=== PATIENT | female | born 1945 | race Caucasian/White ===

== ENCOUNTER 2019-12-29 05:20 | Outpatient (CLI) | payer MEDICARE, OTHER ==
[2019-12-29 13:53] LABS: #Eosinphils 0.2 thou/uL (0.0-0.7); #Lymphocytes 2.6 thou/uL (1.20-3.40); %Basophils 0.4 % (0.0-1.0); %Lymphocytes 29.2 % (21.0-51.0); %Monocytes 11.9 % (0.0-10.0); %Neutrophils 56.5 % (42.0-75.0); Hemoglobin 14.2 g/dL (12.0-16.0); Mean Corpuscular HGB CONC 32.7 g/dL (32.0-36.0); Mean Corpuscular Hemoglobin 31.5 pg (27.0-31.0); Mean Corpuscular Volume 96.3 fL (78.0-98.0); Mean Platelet Volume 9.9 fL (7.4-10.4); Platelet Count 194 thou/uL (130-400); RBC Distribution Width 11.5 % (11.5-14.5); Red Blood Cell (RBC) Count 4.49 mill/uL (4.20-5.40); White Blood Cell (WBC) Count 8.8 thou/uL (4.8-10.8)
[2019-12-29 14:16] LABS: Anion Gap 13 mmol/L (10-20); BUN (Urea Nitrogen) 15 mg/dL (9.8-20.1); Calc. Creatinine Clearance 0 mL/min (70-130); Calcium 9.7 mg/dL (7.8-10.44); Carbon Dioxide 27 mmol/L (23-31); Chloride 104 mmol/L (98-107); Estimated GFR-MDRD 53; Glucose 95 mg/dL (83-110); Potassium 4.6 mmol/L (3.5-5.1); Sodium 139 mmol/L (136-145)
[2019-12-29 14:18] LABS: Bacteria/HPF 2+ HPF (None Seen); Bilirubin Negative (Negative); Blood, Urine Negative (Negative); Clarity Turbid (Clear); Glucose, Urine (Dipstick) Normal (Negative); Ketone, Urine Negative (Negative); Leukocyte 250 Leu/uL (Negative); Nitrite Negative (Negative); Protein, Urine (Dipstick) Negative (Neg-Trace); RBC/HPF 0-3 HPF (0-3); Specific Gravity, Urine 1.009 (1.002-1.036); Urobilinogen Normal mg/dL (Less than 2); pH, Urine 6.5 (5.0-9.0)
--- NOTE | 2019-12-30 09:14 | EKG ---
Test Reason : Blood Pressure : / mmHG Vent. Rate : 077 BPM Atrial Rate : 077 BPM P-R Int : 186 ms QRS Dur : 094 ms QT Int : 392 ms P-R-T Axes : 075 060 056 degrees QTc Int : 443 ms Normal sinus rhythm Normal ECG Confirmed by DR. Tono DAVE MD ([id number]) on 12/30/2019 9:14:30 AM Referred By: IERO Confirmed By:DR. Tono DAVE MD
[2019-12-30 12:51] LABS: SARS-CoV-2 MS2 Positive; SARS-CoV-2 N Gene Negative; SARS-CoV-2 S Gene Negative; SARS-CoV-2 orf1ab Negative
== END 2019-12-29 05:21 | disposition home or self-care (01) ==
LOC: LABBT 05:20
PROVIDERS: ATTEND Orthopaedic Surgery
DX: Z01.818 Encounter for other preprocedural examination (principal); Z11.59 Encounter for screening for other viral diseases; M17.12 Unilateral primary osteoarthritis, left knee
CPT/HCPCS: 80048; 81001; 85025; 85610; 87081; 93005; U0003; 87635; 93010

== ENCOUNTER 2020-01-02 06:54 | Day surgery (SDC) | payer MEDICARE ==
[2019-12-27 11:58] VITALS: BMI 25.8
[2020-01-02] MEDS ORDERED: Tranexamic Acid 1,000 MG/10 ML VIAL ONE ×2 (07:30→11:16)
[2020-01-02] MEDS ORDERED: Vancomycin 1 GM/200 ML BAG ONE (07:30)
[2020-01-02] MEDS ORDERED: Sodium Chloride 0.9% 100 ML ONE (07:31)
[2020-01-02] MEDS ORDERED: Fentanyl 100 MCG/2 ML VIAL ONE ×2 (07:36→08:45)
[2020-01-02] MEDS ORDERED: Midazolam HCl 2 mg/2 ml Vial ONE (07:36)
[2020-01-02] MEDS ORDERED: Ondansetron PF 4 MG/2 ML Vial IVP PRN ×2 (08:23→10:53)
[2020-01-02] MEDS ORDERED: Ropivacaine HCl/PF 250 ML in Premix Bag 1 BAG NERVE BLCK SCH (08:23)
[2020-01-02] MEDS ORDERED: HYDROcodone/Acetaminophen 10/325 mg Tablet PO PRN ×2 (08:23)
[2020-01-02] MEDS ORDERED: Zolpidem Tartrate 5 MG TAB PO PRN ×2 (08:23→10:53)
[2020-01-02] MEDS ORDERED: Promethazine HCl 25 MG/ML VIAL IM PRN ×3 (08:23→11:01)
[2020-01-02] MEDS ORDERED: Ketorolac Tromethamine 30 MG/ML VIAL IVP PRN (08:23)
[2020-01-02] MEDS ORDERED: Fentanyl 100 MCG/2 ML VIAL IV PRN (08:24)
[2020-01-02 08:31] LABS: INR-International Normal Ratio 0.9; PTT 29.7 sec (22.9-36.1)
[2020-01-02 10:06] LABS: Bacteria/HPF None Seen HPF (None Seen); Bilirubin Negative (Negative); Blood, Urine Negative (Negative); Clarity Clear (Clear); Glucose, Urine (Dipstick) Normal (Negative); Ketone, Urine Negative (Negative); Leukocyte Negative Leu/uL (Negative); Nitrite Negative (Negative); Protein, Urine (Dipstick) Negative (Neg-Trace); RBC/HPF None Seen HPF (0-3); Specific Gravity, Urine 1.011 (1.002-1.036); Squamous Epithelial 0-3 HPF (0-3); Urobilinogen Normal mg/dL (Less than 2); WBC/HPF 0-3 HPF (0-3); pH, Urine 5.5 (5.0-9.0)
[2020-01-02] MEDS ORDERED: diphenhydrAMINE 25 MG CAP PO PRN (10:53)
[2020-01-02] MEDS ORDERED: Tranexamic Acid 1,000 MG in Sodium Chloride 0.9% 100 ML IVPB SCH (11:00)
[2020-01-02] MEDS ORDERED: Promethazine HCl 25 MG/ML VIAL SLOW IVP PRN (11:01)
[2020-01-02] MEDS ORDERED: Ondansetron HCl/PF 4 MG/2 ML Vial IVP PRN (11:01)
--- NOTE | 2020-01-02 11:29 | OP ---
DATE OF PROCEDURE: 01/02/2020 CAR SEALER: Markos Dong PA-C PREOPERATIVE DIAGNOSIS: Left knee osteoarthrosis. POSTOPERATIVE DIAGNOSIS: Left knee osteoarthrosis. PROCEDURE PERFORMED: Left total knee replacement using [employer] pinless navigation. ESTIMATED BLOOD LOSS: Minimal. COMPLICATIONS: None. ANESTHESIA: She had general anesthetic. She also had a preoperative block. IMPLANTS: To the left knee includes a [employer] total knee system, the femur was size 4 cruciate-retaining femur, we used size 4 primary tibial baseplate. We used 4 x 9 mm CS X3 tibial plastic and a 29 x 9 asymmetric X3 patella. DISPOSITION: She went to recovery room in stable condition. INDICATIONS: A 74-year-old female, who has been having long-term problems with left knee arthritis and at this time wished to have her knee replaced. PROCEDURE IN DETAIL: After all appropriate consent forms were explained and signed, the patient was taken back to the operating room and at this time was given general anesthetic. Once the level of anesthesia was appropriate, a well-padded tourniquet was placed on the left leg, and the leg was then prepped and draped in standard surgical fashion. The limb was exsanguinated and tourniquet taken up to 300 mmHg. Midline incision was made with a 10 blade down through the skin and subcutaneous tissue. Bovie electrocautery was used to coagulate any brisk venous bleeding. A new blade was used to make a medial parapatellar arthrotomy. Small subperiosteal release was performed medially and excess fat pad was removed. The knee was flexed up to gain access to the femur. The femur was navigated and distal femoral resection was made. Epicondylar access was used to align our sizing jig and this was pinned in place. We sized our femur to be a size 4 cruciate-retaining femur. 4:1 cutting block was applied and pinned. Anterior and posterior chamfer cuts were then made. We navigated out our proximal tibia and made our proximal tibial resection. Spreaders were used to remove any posterior osteophytes off the back of the femur as well as remaining meniscal tissue. A long alignment tessa was then used to achieve correct rotation of our tibial baseplate and we used size 4 primary tibial baseplate was chosen. This was pinned in place. We trialed the polyethylene and we used 4 x 9 mm CS X3 tibial plastic polyethylene gave us full extension and good stability throughout range of motion. Two towel clips and a saw were used to cut our patella. Three lug nuts were drilled and a 29 x 9 asymmetric X3 patella was trialed which sat nicely in the trochlear groove. We then drilled our femur and punched our tibia. All components were removed. The knee was thoroughly irrigated and dried. Cement was mixed into the cement gun on the back table. Components were then placed. The knee was held out in full extension until the cement had dried. All excess bone cement was removed. Multiple #2 Vicryl stitches as well as a Quill were used to close our extensor mechanism. 0 Quill followed by a running Monoderm was then used to close the skin. Surgicel glue was then used on the skin. Once this had dried, soft tissue dressing was applied to the limb, tourniquet was let down, and the toes pinked up nicely. The patient was then awakened and taken to the recovery room in stable condition. All counts were correct at the end of the case. The patient did receive preoperative IV antibiotics. The patient was injected with Marcaine for postoperative pain relief. Job ID: [id number]
[2020-01-02] MEDS ORDERED: PHENYLEPHRINE-NS 100 MCG/ML 10 ML SYRINGE ONE (11:35)
[2020-01-02] MEDS ORDERED: Ondansetron PF 4 MG/2 ML Vial ONE (11:35)
[2020-01-02] MEDS ORDERED: Dexamethasone 20 MG/5 ML VIAL ONE (11:35)
[2020-01-02] MEDS ORDERED: Ropivacaine 0.2% HCl/PF (40 MG/20 ML VIAL) ONE (11:35)
[2020-01-02] MEDS ORDERED: Bupivacaine HCl 0.5%/Epinephrine 1:200,000/PF 30 ml Vial ONE (11:35)
[2020-01-02] MEDS ORDERED: EPHEDRINE 25 MG/5 ML SYRINGE ONE (11:35)
[2020-01-02] MEDS ORDERED: PROPOFOL 200 MG/20 ML VIAL ONE (11:35)
[2020-01-02] MEDS: CEFAZOLIN 2 GM in Premix Bag 1 BAG IVPB SCH (13:04)
[2020-01-02] MEDS: Sodium Chloride 0.9% 1,000 ML IV SCH ×2 (13:09→18:05)
[2020-01-02] MEDS ORDERED: Vancomycin 1 GM in Premix Bag 1 BAG IVPB SCH (20:00)
[2020-01-02] MEDS: Senokot S 8.6-50 MG TAB PO SCH (20:25)
[2020-01-02] MEDS: Aspirin 81 mg Enteric Coated Tablet PO SCH (20:26)
[2020-01-02] MEDS: Ferrous Gluconate 324 MG TAB PO SCH (20:26)
[2020-01-02] MEDS: Cyclobenzaprine 10 MG TAB PO SCH (20:26)
[2020-01-02] MEDS: Atorvastatin Calcium 40 MG TAB PO SCH (20:26)
[2020-01-02] MEDS ORDERED: Aspirin 81 mg Enteric Coated Tablet PO SCH (21:00)
[2020-01-03] MEDS: CEFAZOLIN 2 GM in Premix Bag 1 BAG IVPB SCH (00:06)
[2020-01-03 06:13] LABS: Hemoglobin 12.2 g/dL (12.0-16.0); Mean Corpuscular HGB CONC 33.6 g/dL (32.0-36.0); Mean Corpuscular Hemoglobin 31.9 pg (27.0-31.0); Mean Platelet Volume 9.7 fL (7.4-10.4); Platelet Count 178 thou/uL (130-400); RBC Distribution Width 11.4 % (11.5-14.5); Red Blood Cell (RBC) Count 3.83 mill/uL (4.20-5.40)
[2020-01-03] MEDS: Sodium Chloride 0.9% 1,000 ML IV SCH ×2 (06:54→17:04)
[2020-01-03] MEDS: Senokot S 8.6-50 MG TAB PO SCH ×2 (08:30→20:36)
[2020-01-03] MEDS: Polyethylene Glycol 3350 17 GM Packet PO SCH (08:30)
[2020-01-03] MEDS: Alogliptin 6.25 MG TAB PO SCH (08:30)
[2020-01-03] MEDS: Multivitamin W/ Minerals 1 TAB PO SCH (08:31)
[2020-01-03] MEDS: Cholecalciferol 1,000 UNITS (25 MCG) TAB PO SCH (08:31)
[2020-01-03] MEDS: Ferrous Gluconate 324 MG TAB PO SCH ×2 (08:31→20:36)
[2020-01-03] MEDS: Aspirin 81 mg Enteric Coated Tablet PO SCH ×2 (08:31→20:36)
[2020-01-03] MEDS: traMADol HCl 50 MG TAB PO PRN ×2 (09:48→20:41)
--- NOTE | 2020-01-03 12:55 | PRG ---
DATE OF SERVICE: 01/03/2020 SUBJECTIVE: Cammy is a 74-year-old female, postop day 1 from a left total knee arthroplasty. She has no complaints. She is quite comfortable. She ambulated 25 feet yesterday evening after surgery. OBJECTIVE: VITAL SIGNS: Temperature 97.9, pulse 67, respiratory rate 16 and nonlabored, O2 saturation 95% on room air, and blood pressure is 132/73. GENERAL: She is alert and oriented to person, place, time, and situation, responsive and appropriate with examiner. SKIN: Her incision is clean and closed without erythema. MUSCULOSKELETAL: She is neurovascularly intact in the left lower extremity. LABORATORY DATA: Hemoglobin and hematocrit 12.2 and 36.4. IMPRESSION: A 74-year-old female postop day 1 left total knee arthroplasty, doing very well. PLAN: Continue current care. Probable discharge home tomorrow. Job ID: [id number]
[2020-01-03] MEDS: Atorvastatin Calcium 40 MG TAB PO SCH (20:36)
[2020-01-03] MEDS: Cyclobenzaprine 10 MG TAB PO SCH (20:36)
[2020-01-03] MEDS: Acetaminophen 325 MG TAB PO PRN (20:41)
[2020-01-04 05:16] LABS: Mean Corpuscular HGB CONC 32.6 g/dL (32.0-36.0); Mean Corpuscular Hemoglobin 31.1 pg (27.0-31.0); Mean Corpuscular Volume 95.4 fL (78.0-98.0); Mean Platelet Volume 10.1 fL (7.4-10.4); Platelet Count 145 thou/uL (130-400); RBC Distribution Width 11.5 % (11.5-14.5); Red Blood Cell (RBC) Count 3.85 mill/uL (4.20-5.40); White Blood Cell (WBC) Count 16.6 thou/uL (4.8-10.8)
[2020-01-04] MEDS: Sodium Chloride 0.9% 1,000 ML IV SCH ×2 (05:17→13:04)
[2020-01-04] MEDS: Aspirin 81 mg Enteric Coated Tablet PO SCH ×2 (08:54→19:50)
[2020-01-04] MEDS: Alogliptin 6.25 MG TAB PO SCH (08:54)
[2020-01-04] MEDS: Cholecalciferol 1,000 UNITS (25 MCG) TAB PO SCH (08:54)
[2020-01-04] MEDS: Multivitamin W/ Minerals 1 TAB PO SCH (08:55)
[2020-01-04] MEDS: Polyethylene Glycol 3350 17 GM Packet PO SCH (08:55)
[2020-01-04] MEDS: Senokot S 8.6-50 MG TAB PO SCH ×2 (08:55→19:50)
[2020-01-04] MEDS: Ferrous Gluconate 324 MG TAB PO SCH ×2 (08:55→19:50)
[2020-01-04] MEDS: traMADol HCl 50 MG TAB PO PRN ×2 (08:56→15:51)
[2020-01-04] MEDS: Acetaminophen 325 MG TAB PO PRN ×2 (08:56→15:50)
[2020-01-04] MEDS: Atorvastatin Calcium 40 MG TAB PO SCH (19:50)
[2020-01-04] MEDS: Cyclobenzaprine 10 MG TAB PO SCH (19:50)
[2020-01-04] MEDS: Apixaban 5 MG TAB PO SCH (19:50)
[2020-01-05] MEDS: traMADol HCl 50 MG TAB PO PRN ×3 (03:17→14:40)
[2020-01-05] MEDS: Acetaminophen 325 MG TAB PO PRN ×3 (03:17→14:40)
[2020-01-05] MEDS: Sodium Chloride 0.9% 1,000 ML IV SCH ×2 (04:22→08:38)
[2020-01-05 05:56] LABS: Hemoglobin 12.4 g/dL (12.0-16.0); Mean Corpuscular HGB CONC 32.7 g/dL (32.0-36.0); Mean Corpuscular Hemoglobin 31.4 pg (27.0-31.0); Mean Platelet Volume 9.8 fL (7.4-10.4); Platelet Count 163 thou/uL (130-400); RBC Distribution Width 11.5 % (11.5-14.5); Red Blood Cell (RBC) Count 3.93 mill/uL (4.20-5.40)
[2020-01-05] MEDS: Senokot S 8.6-50 MG TAB PO SCH (08:31)
[2020-01-05] MEDS: Apixaban 5 MG TAB PO SCH (08:32)
[2020-01-05] MEDS: Ferrous Gluconate 324 MG TAB PO SCH (08:32)
[2020-01-05] MEDS: Aspirin 81 mg Enteric Coated Tablet PO SCH (08:32)
[2020-01-05] MEDS: Polyethylene Glycol 3350 17 GM Packet PO SCH (08:32)
[2020-01-05] MEDS: Cholecalciferol 1,000 UNITS (25 MCG) TAB PO SCH (08:33)
[2020-01-05] MEDS: Multivitamin W/ Minerals 1 TAB PO SCH (08:33)
[2020-01-05] MEDS: Alogliptin 6.25 MG TAB PO SCH (10:06)
[2020-01-05 11:29] VITALS: BP 113/72; TEMP 97.9
== END 2020-01-05 14:50 | disposition home or self-care (01) ==
LOC: SDC 06:54 → SJJU 10:55 → EDSTATUS 11:00 → SDC 01-05 14:50
PROVIDERS: ATTEND Orthopaedic Surgery
PROC: 0SRD0J9 Replacement of Left Knee Joint with Synthetic Substitute, Cemented, Open Approach (ICD-10-PCS; principal; 2020-01-02)
PROC: 8E0YXBZ Computer Assisted Procedure of Lower Extremity (ICD-10-PCS; 2020-01-02)
DX: M17.12 Unilateral primary osteoarthritis, left knee (principal); I10 Essential (primary) hypertension; E78.5 Hyperlipidemia, unspecified; I48.91 Unspecified atrial fibrillation; K59.09 Other constipation; F41.9 Anxiety disorder, unspecified; Z86.73 Personal history of transient ischemic attack (TIA), and cerebral infarction without residual deficits; Z79.01 Long term (current) use of anticoagulants; Z79.82 Long term (current) use of aspirin; Z79.899 Other long term (current) drug therapy; Z88.6 Allergy status to analgesic agent
CPT/HCPCS: 20985; 27447; 81001; 85027; 85610; 85730; 97110 ×3; 97116 ×4; 97139 ×5; 97530; C1713; C1776; 36415; J0670; J0690; J1100; J2250; J2405; J2704; J2795; J3010; J3370; J3490